=== PATIENT | female | born 1945 | race Caucasian/White ===

== ENCOUNTER → 2018-12-16 13:17 | Outpatient (CLI) | payer MEDICARE, BC, SELFPAY ==
[2018-12-16 14:41] LABS: Add Manual Diff / Slide Review NO; Basophils Absolute Auto 0 /uL (0-100); Basophils Percent Auto 0.4 % (0-2); Eosinophils Absolute Auto 100 /uL (0-450); Eosinophils Percent Auto 1.7 % (2-4); Hematocrit 42.2 % (36-46); Hemoglobin 13.8 g/dL (12.0-16.0); Lymphocytes Absolute Auto 2600 /uL (1100-4500); Lymphocytes Percent Auto 39.4 % (25-40); Mean Corpuscular HGB Conc 32.8 % (30-36); Mean Corpuscular Hemoglobin 29.8 PG (26-34); Monocytes Absolute Auto 600 /uL (0-900); Monocytes Percent Auto 8.9 % (3-14); Neutrophils Absolute Auto 3300 /uL (1500-7000); Neutrophils Percent Auto 49.6 % (50-75); Platelet Count 233 X10^3/uL (150-400); Red Blood Cell Count 4.64 X10^6/uL (4.0-5.2); Red Cell Distribution Width 12.9 % (11.6-14.8); White Blood Cell Count 6.7 X10^3/uL (4.5-11.0)
[2018-12-16 14:45] LABS: Hemoglobin A1C% w Est Avg Glu 6.4 % (4.0-6.0)
[2018-12-16 16:02] LABS: BUN Creatinine Ratio 25.7 (6-22); Blood Urea Nitrogen 18 mg/dL (7-17); Calcium 9.6 mg/dL (8.4-10.2); Carbon Dioxide 31 mmol/L (22-32); Chloride 102 mmol/L (98-107); Estimated Glomerular Filt Rate > 60.0 mL/min (>60); Glucose 114 mg/dL (80-110); HEMOLYSIS < 15 (0-50); Potassium 4.4 mmol/L (3.4-5.1); Sodium 141 mmol/L (137-145)
== END ==
PROVIDERS: Family Provider Physician Assistant; PCP Physician Assistant; Visit Provider Orthopaedic Surgery Orthopaedic Surgery of the Spine
DX: R73.9 Hyperglycemia, unspecified (principal); Z01.818 Encounter for other preprocedural examination
CPT/HCPCS: 36415; 80048; 83036; 85025; 93005; 93010

== ENCOUNTER 2019-01-01 11:06 | Inpatient (IN) | payer MEDICARE, BC, SELFPAY ==
[2018-12-24 13:31] VITALS: BMI 26.1
[2019-01-01] VITALS (22 sets, daily range): BP systolic 87–176; BP diastolic 47–114; PULSE 74–100; RESP 6–18; TEMP 36.2–37.3; O2SAT 72–98; BMI 26.1
--- NOTE | 2019-01-01 | DI.RAD.S_ITS ---
PROCEDURE: XR LUMBAR SPINE 2-3V INDICATIONS: L4-5 TLIF FINDINGS: 2 limited intraoperative fluoroscopically stored images of the lower lumbar spine were obtained for intraoperative hardware localization purposes. These images are not meant for diagnostic purposes. Intraoperative findings related to an L4-5 discectomy and fusion procedure are present. IMPRESSION: Intraoperative images obtained during the patient's L4-5 discectomy/fusion procedure. Dictated by: Silverio Bynum M.D. on 01/01/2019 at 15:13 Approved by: Silverio Bynum M.D. on 01/01/2019 at 15:15
[2019-01-01] MEDS: LACTATED RINGERS 1,000 ML 42 ML IV (12:06)
--- NOTE | 2019-01-01 12:10 | SUR.PREOP ---
Pt is ready for OR at this time. PIV in place, LR at TKO, consent has been signed by all parties except Dr Finley who will do when he assesses the Pt prior to her being brought back to the OR. Awaiting Dr Finley, Anesthesia and BIOMASS PLANT TECHNICIAN to see Pt. Kristofer is a the bedside, Pt denies pain and is resting comfortably at this time.
--- NOTE | 2019-01-01 13:05 | PM.PREOP ---
Pre-operative Note Interval Note History & Physical reviewed/Exam performed by Physician: Yes Changes to H&P: No
[2019-01-01] MEDS: CEFAZOLIN 2 GM/100 ML FROZ.PIGGY IV ×2 (13:24→20:25)
--- NOTE | 2019-01-01 13:56 | SUR.OPER ---
Prone on spine table, head in foam head support, padded chest and pelvic supports, gel pad at knees, lower legs supported by pillows; nipples, genitalia and toes free of pressure, arms secured on foam padded arm boards at <90 degrees abduction. Tape over blanket at thigh secured to table.
[2019-01-01] MEDS: BUPIVACAINE 0.25% W/ EPI VIAL 30 ML INJ (14:01)
[2019-01-01] MEDS: BUPIVACAINE LIPOSOME 266 MG/20 ML VIAL INJ (15:14)
--- NOTE | 2019-01-01 15:34 | PM.OP.1 ---
Operative Date/Time/Diagnoses Date of procedure: 01/01/19 Time of procedure: 12:34 Pre-op diagnosis: 1. L4-5 spondylolisthesis 2. L4-5 spinal stenosis 3. 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 L4-5 Postero-lateral and posterior interbody fusion 2. L4-5 interbody cage placement. 3. L4-5 decompressive laminectomy with bilateral facetecomies 4. L4-5 Posterior non-segmental instrumentation 5. [place] of bone marrow from iliac crest 6. Utilization of microsurgical technique and operating microscope Same procedure as scheduled: Yes Indications: Patient has been having chronic back pain and worsening lumbar radiculopathy. Patient failed multiple conservative management with worsening pain weakness and numbness in her lower extremity. Patient has been having difficulty performing activity of daily living. After discussing risks benefits of treatment options, patient elected proceed with surgery. Surgeon: Ori Finley Construction Services Technician: Vika Hugo Click Yes if Unassisted: No Anesthesia Type: General Operative Notes Closure Type: primary Estimated Blood Loss (mL): 50 Blood products transfused: none Procedure in detail: Patient was seen in the preoperative area. Risks and benefits of the surgery was discussed with the patient. Informed consent was obtained from the patient and placed in the chart. Surgical site was marked. Patient was taken to the operative room. General anesthesia was administered. Prophylactic antibiotic was given to the patient less than 30 min before the incision was made. Patient was placed into a prone position on the González table. Patient's back was then prepped and draped in the sterile fashion. Time-out was performed at this time. Using AP and lateral C-arm imaging the interval between L4-5 was identified and marked on patient's back. A 2 inch incision 2 in from midline was made on the left side first. The fascia was incised in line with skin incision. Globus MARS retractors was placed inside the incision and docked onto the L4 lamina. Using microsurgical technique and operating microscope, a L4-5 laminectomy and L4-5 facetectomy was performed using a Kerrison rongeur. Patient had significant foraminal stenosis which required removal of more than 75% of bilateral facets for decompression. It rendered the L4-5 level grossly unstable after decompression was completed and requiring the fusion procedure at the same time. The disc space at L4-5 was identified. And a total diskectomy was performed at L4-5 level. The endplates were decorticated using a rasp and shaver. The total diskectomy and decortication was performed at L4-5 level in order to to accomplish a L4-5 fusion. The local bone from the laminectomy and facetectomy was saved for local bone grafting. After the total diskectomy and decortication was completed, Bio4 bone graft material was combined with local bone that was harvested earlier. At this time, a separate skin is incision was made over the iliac crest. A Jamshidi needle was inserted into the iliac crest through a separate skin incision. 5 cc of bone marrow aspiration was obtained through the separate skin incision using a Jamshidi needle from the iliac crest. The bone marrow aspiration was combined with local bone and the via cell bone grafting material. The bone grafting material was placed into the L4-5 interbody space along with a expandable cage. The cage was expanded to its maximum height using the torque limiting screwdriver. At this time a mirror image incision was made on the left side. The fascia was incised in line with the skin incision. Globus MARS retractor was inserted and docked onto the L4-5 posterolateral gutter. Using the power drill, posterior-lateral decortication was performed at L4-5 level until bleeding cortical bone was identified. The remaining bone grafting material was placed into the L4-5 posterior lateral gutter he order to accomplish posterolateral fusion at the L4-5 level. Using the double C-arm technique, pedicle screws were placed into the L4-5 pedicles bilaterally. This was done by placing the Jamshidi needle into the pedicles, then placing the guidewires over the Jamshidi needle, and finally placing the cannulated screws over the guidewires bilaterally. After the pedicle screws were placed, 2 titanium rods was locked into the heads of the pedicle screws using locking caps and torque limiting screwdriver. After all the hardware was placed, and confirmed with AP and lateral C-arm imaging, the wound was then irrigated with sterile normal saline and packed with Ray-Brinda gauze for 3 min to accomplish hemostasis. After the gauze was removed the deep fascia was closed with #1 Vicryl suture. The subcutaneous layer was closed with 2-0 Vicryl. The skin was closed with skin arelis. Patient tolerated the procedure well. There were no complications. Complications: none Condition: stable Disposition: PACU Plan for aftercare: Admit to inpatient hospital
[2019-01-01] MEDS: HYDROMORPHONE 2 MG INJ 0.5 MG IV ×8 (16:02→17:06)
[2019-01-01] MEDS: MEPERIDINE 50 MG/ML 25 MG IV (16:11)
[2019-01-01] MEDS: SODIUM CHLORIDE 0.9% 1,000 ML 100 ML IV (17:00)
--- NOTE | 2019-01-01 17:12 | SUR.PHASEI ---
pt arrived in pacu at 1537 pthadan oral airway and her sat dropped to the 60's pt was bagged with 100% o2 for approx one minute and pt woke up and then her O2 sat went up with a simple mask then transferred mask to a nasal cannula. Currently on nasal cannual and doing well. pt now recovered from anesthia and states she feels better. pt is stable. Dr. Gregory stayed with RN unitl pt's o2 sats came up. Pt doing well. now and pain is at a level 5.
[2019-01-01] MEDS: TRAZODONE 50 MG TABLET 150 MG PO (20:25)
[2019-01-01] MEDS: MELATONIN 3 MG TABLET PO (20:26)
[2019-01-01] MEDS: DOCUSATE 100 MG CAPSULE PO (20:26)
[2019-01-01] MEDS: SENNOSIDES 8.6 MG TABLET 17.2 MG PO (20:26)
[2019-01-01] MEDS: OXYCODONE IR 5 MG TABLET 10 MG PO ×2 (20:52→23:08)
[2019-01-02 00:10] VITALS: BP 127/72; PULSE 81; RESP 18; TEMP 36.7; O2SAT 99
[2019-01-02] MEDS: OXYCODONE IR 5 MG TABLET 10 MG PO ×3 (02:12→19:47)
[2019-01-02] MEDS: hydrOXYzine pamoate 25 MG CAPSULE PO ×2 (02:12→07:32)
[2019-01-02] MEDS: MAG HYDROX/ALUM/SIMETH 30 ML UDC PO (02:12)
[2019-01-02 03:51] VITALS: BP 140/69; PULSE 98; RESP 18; TEMP 37; O2SAT 96
[2019-01-02] MEDS: CEFAZOLIN 2 GM/100 ML FROZ.PIGGY IV (04:32)
[2019-01-02 07:11] LABS: Hematocrit 37.2 % (36-46); Hemoglobin 12.1 g/dL (12.0-16.0)
--- NOTE | 2019-01-02 07:28 | PM.PNPO.1 ---
Subjective Date Patient Seen: 01/02/19 Interval history: Patient seen bedside s/p L4-5 TLIF on 01/01/[address] Finley. Patient is POD #1. The patient is doing well, pain is controlled although she is complaining of some nausea. She is also somnolent. She denies numbness tingling states that her leg pain is improved. She denies chest pain shortness of breath. She has walked to the bathroom already this morning. Exam Vital Signs (past 8 hours): - 01/02/19 00:10 01/02/19 03:51 Temperature 98.1 F 98.6 F Pulse Rate 81 98 H Respiratory Rate 18 18 Blood Pressure 127/72 140/69 Pulse Oximetry 99 96 Oxygen Delivery Method Nasal Cannula Oxygen Flow Rate 0 Narrative Exam Narrative: Well-developed well-nourished no acute distress alert and oriented although somnolent. Dressing on the lumbar spine is clean dry and intact mild drainage over the site of the bone graft harvesting. No active drainage. No erythema mild generalized swelling. Calves are soft and compressible. No focal deficits noted. Objective Labs Result Diagrams: 01/02/19 06:30 Labs: Laboratory Results - last 24 hr 01/02/19 06:30 Hgb 12.1 Hct 37.2 Assessment & Plan Post-op Postoperative Procedures Operation Date: 01/01/19 13:15 Actual Procedures Side Surgeon p L4-5 TLIF Ori Finley MD 1. The patient is postop day 1. Status post the above procedure. She is doing well, would potentially like to go home today. This only based on her pain throughout the day as well as her activity with physical therapy. Probable discharge home today or tomorrow. Continue pain control and Zofran as needed for nausea.
[2019-01-02] MEDS: ONDANSETRON 4 MG/2 ML INJ IV (07:32)
[2019-01-02 07:58] VITALS: BP 127/60; PULSE 67; RESP 16; TEMP 36.8; O2SAT 94
--- NOTE | 2019-01-02 09:10 | PT.IIE ---
Current Diagnoses Other spondylosis with radiculopathy, lumbar region (01/01/19) Spinal stenosis, lumbar region without neurogenic claudication (01/01/19) Surgery Performed Operation Date: 01/01/19 13:15 Actual Procedures p L4-5 TLIF - Ori Finley MD Surgical History (Last Updated 12/24/18 @ 14:19 by Faith Maravilla, RN) Hx of tonsillectomy (Acute) Status post blepharoplasty of both eyes (Acute) Status post cataract extraction of both eyes with insertion of intraocular lens (Acute) Medical History (Last Updated 12/29/18 @ 08:18 by Faith Maravilla RN) Depression (Acute) Eczema (Acute) HTN (hypertension) (Acute) Heart murmur (Acute) Numbness and tingling in both hands (Acute) Osteoporosis (Acute) Pre-diabetes (Acute) Tumor (Acute ~2004) Type 2 diabetes mellitus (Acute) Physical Therapy Inpatient Evaluation/Re-Eval M1 PT/OT-IP Prior Functional Status Start: 01/02/19 12:13 Freq: NEEDED Status: Active Protocol: Document 01/02/19 09:10 AB (Rec: 01/02/19 13:04 AB [email or web address]) Medical Review Prior Functional Status Medical History Reviewed Yes Communication able to make needs known but with confusion Mobility and Gait pt stated that she is independent with all mobilities and ambulation without AD Social History Household Members spouse Living Arrangements House Number of Floors (Floors) Two Floors Number of Stairs To Enter/Railing? pt stays on main level of the house has no steps to enter Home Environment Standard Height Toilet Walk in Shower Home Equipment Front Wheel Walker Four Wheel Walker Raised Toilet Seat Without Armrests Hand Held Shower M2 PT-IP Current Condition Start: 01/02/19 12:13 Freq: NEEDED Status: Active Protocol: Document 01/02/19 09:10 AB (Rec: 01/02/19 13:04 AB [email or web address]) Physical Therapy Current Condition Current Condition Evaluation Date 01/02/19 Treatment Diagnosis s/p L4-5 posterolateral/post fusion/ lami; difficulty in walking Onset Date 01/01/19 Precautions Lumbar Precautions Log Roll No Twisting Limit Bending Lifting Restriction of 10 lbs Gait Belt above Incisional Area M3 PT-IP Subjective Start: 01/02/19 12:13 Freq: NEEDED Status: Active Protocol: Document 01/02/19 09:10 AB (Rec: 01/02/19 13:04 AB [email or web address]) Subjective Physical Therapy Visit Type Type Initial Evaluation Visit Start Time 09:10 Visit Stop Time 09:58 Total Visit Minutes 48 Number of [employer] Visits 0 Physical Therapy Visit Comments Patient Comments pt agreeable to do PT Therapy Pain Assessment Pain When Pain Assessed At Rest Pain Present Pain Present Pain Reported Location Back Intensity 5 Scale Used Numeric (1 - 10) Pain Management Techniques Apply Cold Re-positioning Timing of Activity with Medications M4 PT-IP Mobility and Gait Start: 01/02/19 12:13 Freq: NEEDED Status: Active Protocol: Document 01/02/19 09:10 AB (Rec: 01/02/19 13:04 AB [email or web address]) PT-Bed Mobility Assessment Rolling Type of Rolling Log Rolling Level of Assist Moderate Assistance Supine to Sit Supine to Sit Moderate Assistance PT-Transfer Assessment Sit to and From Stand Sit to and from Stand Moderate Assistance 1 Person Assistance Use of Upper Extremities Equipment Transfer Assistive Device Gait Belt Front Wheeled Walker Orthotic/Prosthetic Devices or Brace: No Transfers Transfer Destination Chair Transfer Technique Stand Step Pivot Transfer Ability Level of Assist Minimal Assistance 1 Person Assistance Use of Upper Extremities Comments Mobility Comments pt completed sit to stand mod A and max cues for techniques. pt with difficulty following directions and requires repeated cues and instructions . pt ambulated in room using FWW min A ~ 25 ft. pt was able to stand by the sink with OT assisting and completed grooming/ADLs. pt completed sit <>stand x 3 reps from chair requiring CGa to min A and max cues. Gait Assessment Gait Gait Assistance Required: Minimum Assistance Distance (Feet) 50 Able to Maintain Weight Bearing Status Yes During Gait Assistive Devices Assistive Device Gait Belt 4 Wheeled Walker Orthotic/Prosthetic Devices or Brace: No Gait Deviations General Gait Pattern Antalgic Decreased Stride Length Decreased Feet Clearance Factors Limiting Gait Function Factors Limiting Gait Function Decreased Activity Tolerance Decreased Strength Difficulty Following Directions Limited Range of Motion Pain Poor Balance Poor Safety Awareness Comments Gait Comments pt ambulated in hallway ~ 50 ft using 4WW min A and cues. educated on how to use brakes/ unlocking/locking. 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 Gross Range of Motion Lower Extremity ROM Assessment Within Functional Limits Strength Lower Extremity Strength Assessment Within Functional Limits Muscle Tone Muscle Tone WNL Yes M6 PT-IP Treatment Start: 01/02/19 12:13 Freq: NEEDED Status: Active Protocol: Document 01/02/19 09:10 AB (Rec: 01/02/19 13:04 AB [email or web address]) Physical Therapy Treatment Education Education Provided Precautions Weight Bearing Status Post-Op Packet Safety M7 PT-IP Assessment and Plan Start: 01/02/19 12:13 Freq: NEEDED Status: Active Protocol: Document 01/02/19 09:10 AB (Rec: 01/02/19 13:04 AB [email or web address]) PT Summary Assessment and Plan Potential Rehabilitation Potential Fair Status of Condition at Evaluation Evolving Summary Impairments Pain ROM Strength Balance Coordination Sensation Tone Cognition Bed Mobility Transfers Gait Activity Tolerance Assessment Summary pt requiring min to mod A with mobility and with difficulty processing instructions. pt plans to go home with spouse to assist her. caregiver training will be conducted when appropriate. will continue to assess progress for safe d/c. Goals Bed Mobility Goal Standby Assistance Transfer Goal Standby Assistance Front Wheeled Walker Gait Goal Standby Assistance Front Wheel Walker Gait Distance 150 Days to Meet Goals 3 Frequency of Treatment Frequency Of Treatment Twice a Day Treatment Plan Physical Therapy Treatment Plan Bed Mobility Training Transfer Training Gait Training Therapeutic Exercise Balance Retraining Post Op Education Discharge Planning Hot or Cold Pack Neuromuscular Re-ed Coordination Retraining Manual Therapy Other Recommendations and Next Treatment caregiver training, ambulation Focus Recommendations To Nursing Amount of Assist Needed 1 Person Assist Discharge Recommendations PT Discharge Recommendations Home with Assistance
[2019-01-02] MEDS: ACETAMINOPHEN 325 MG TABLET 650 MG PO ×2 (12:26→18:37)
[2019-01-02] MEDS: DULOXETINE 30 MG CAPSULE 60 MG PO (12:26)
[2019-01-02] MEDS: DOCUSATE 100 MG CAPSULE PO ×2 (12:26→20:37)
[2019-01-02] MEDS: LOSARTAN 25 MG TABLET PO (12:27)
--- NOTE | 2019-01-02 12:39 | PC.NURSE ---
AM NOTE - pt reported nausea during shift report, given 4mg iv zofran and 25mg po vistaril, +bt, no flatus yet, pt did become drowsy after admin but nausea did resolve and ate some oatmeal later and valeria soup for lunch, did get up with phys therapy, hx carpal tunnel wrists, denies numbness or tingling hands or feet, some gen weakness and moving slowly, to chair for short period then ret to bed, discussed pain mgt at lunch and started with 650mg tylenol for back discomfort 5-6 on scale 0/10 and will discuss narcotic later prior to phys therapy.
[2019-01-02 13:00] VITALS: BP 124/61; PULSE 87; RESP 18; TEMP 36.9; O2SAT 93
--- NOTE | 2019-01-02 14:56 | PT.IPTN ---
Current Diagnoses Other spondylosis with radiculopathy, lumbar region (01/01/19) Spinal stenosis, lumbar region without neurogenic claudication (01/01/19) Surgery Performed Operation Date: 01/01/19 13:15 Actual Procedures p L4-5 TLIF - Ori Finley MD Physical Therapy Treatment Note M2 PT-IP Current Condition Start: 01/02/19 12:13 Freq: NEEDED Status: Active Protocol: Document 01/02/19 09:10 AB (Rec: 01/02/19 13:04 AB [email or web address]) Physical Therapy Current Condition Current Condition Evaluation Date 01/02/19 Treatment Diagnosis s/p L4-5 posterolateral/post fusion/ lami; difficulty in walking Onset Date 01/01/19 Precautions Lumbar Precautions Log Roll No Twisting Limit Bending Lifting Restriction of 10 lbs Gait Belt above Incisional Area M3 PT-IP Subjective Start: 01/02/19 12:13 Freq: NEEDED Status: Active Protocol: Document 01/02/19 14:56 AB (Rec: 01/02/19 16:25 AB [email or web address]) Subjective Physical Therapy Visit Type Type Treatment Note Visit Start Time 14:56 Visit Stop Time 15:35 Total Visit Minutes 39 Number of BRAZER RESISTANCE Visits 0 Physical Therapy Visit Comments Patient Comments pt agreed to do PT Therapy Pain Assessment Pain When Pain Assessed At Rest Pain Present Pain Present Pain Reported Location Back Intensity 6 Scale Used Numeric (1 - 10) Pain Management Techniques Re-positioning Timing of Activity with Medications M4 PT-IP Mobility and Gait Start: 01/02/19 12:13 Freq: NEEDED Status: Active Protocol: Document 01/02/19 14:56 AB (Rec: 01/02/19 16:25 AB [email or web address]) PT-Bed Mobility Assessment Rolling Type of Rolling Log Rolling Level of Assist Contact Guard Assistance Supine to Sit Supine to Sit Moderate Assistance Sit to Supine Sit to Supine Minimal Assistance Scooting Scooting to Edge of Bed Minimal Assistance PT-Transfer Assessment Sit to and From Stand Sit to and from Stand Moderate Assistance 1 Person Assistance Equipment Transfer Assistive Device Gait Belt Front Wheeled Walker Orthotic/Prosthetic Devices or Brace: No Transfers Transfer Destination Toilet Transfer Technique pt ambulated to the toilet using FWW min A Transfer Ability Level of Assist Minimal Assistance Comments Mobility Comments caregiver training conducted. Bed mobility training: supine< >sit x 5 reps. educated spouse on how to instruct and assist pt. spouse was able to assist pt but requires cues on how to provide pt instructions and assist. sit<>stand transfer training: educated spouse on how to use safety belt, instruct pt and how to assist pt. spouse was able to assist pt. pt tends to be impulsive and cued to slow down. also educated on how to use FWW properly as pt tends to lift it forward and also tilt it on one side. ambulation training conducted. educated spouse on how to assist pt. pt ambulated to the toilet using FWW with spouse assisting. pt was able to maintain standing using FWW for support CGA while doing brief management. pt was able to ambulate towards the sink using FWW with spouse assisting and completed handwashing. Gait Assessment Gait Gait Assistance Required: Minimum Assistance Distance (Feet) 25 Able to Maintain Weight Bearing Status Yes During Gait Assistive Devices Assistive Device Gait Belt Front Wheeled Walker Orthotic/Prosthetic Devices or Brace: No Gait Deviations General Gait Pattern Antalgic Decreased Stride Length Decreased Feet Clearance Factors Limiting Gait Function Factors Limiting Gait Function Decreased Activity Tolerance Decreased Strength Difficulty Following Directions Limited Range of Motion Pain Poor Balance Poor Safety Awareness M5 PT-IP Objective Assessments Start: 01/02/19 12:13 Freq: NEEDED Status: Active Protocol: Document 01/02/19 09:10 AB (Rec: 01/02/19 13:04 AB [email or web address]) Orientation Orientation/Cognition Level of Alertness Alert Orientation Name Age Place Situation Safety Awareness Decreased Safety Awareness Memory Description 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 pls refer to the mobility section for details. M7 PT-IP Assessment and Plan Start: 01/02/19 12:13 Freq: NEEDED Status: Active Protocol: Document 01/02/19 14:56 AB (Rec: 01/02/19 16:25 AB [email or web address]) PT Summary Assessment and Plan Potential Rehabilitation Potential Good Summary Impairments Pain ROM Strength Balance Coordination Sensation Tone Cognition Bed Mobility Transfers Gait Activity Tolerance Progress Towards Goals Slow Progress - Other Assessment Summary caregiver training conducted and requires further training. pt plans to go home with spouse to assist. d/c plan depending if caregiver will be able to safely assist pt. caregiver training set up for tomorrow ~ 930-1000 am. Goals Bed Mobility Goal Standby Assistance Transfer Goal Standby Assistance Front Wheeled Walker Gait Goal Standby Assistance Front Wheel Walker Gait Distance 150 Days to Meet Goals 3 Frequency of Treatment Frequency Of Treatment Twice a Day Treatment Plan Physical Therapy Treatment Plan Bed Mobility Training Transfer Training Gait Training Therapeutic Exercise Balance Retraining Post Op Education Discharge Planning Hot or Cold Pack Neuromuscular Re-ed Coordination Retraining Manual Therapy Other Recommendations and Next Treatment caregiver training, ambulation Focus Recommendations To Nursing Amount of Assist Needed 1 Person Assist Discharge Recommendations PT Discharge Recommendations Home with Assistance
[2019-01-02 15:30] VITALS: BP 120/51; PULSE 80; RESP 17; TEMP 37.1; O2SAT 93
--- NOTE | 2019-01-02 15:31 | CM.IDA ---
Addendum entered by TONNY Barton 01/03/19 15:07: DC Saturday, not Saturday, still no barriers to safe DC home. Original Note: DC Order in place today; Pt is POD#1 from spinal surgery w/ Dr Finley. Therapy team recommending DC back home w/spouse to support. No barriers indicated to safe DC home, no SW needs. JW
--- NOTE | 2019-01-02 16:30 | OT.IP.EVAL ---
Current Diagnoses Other spondylosis with radiculopathy, lumbar region (01/01/19) Spinal stenosis, lumbar region without neurogenic claudication (01/01/19) Surgery Performed Operation Date: 01/01/19 13:15 Actual Procedures p L4-5 TLIF - Ori Finley MD Past Medical History (Last Updated 12/29/18 @ 08:18 by Faith Maravilla, RN) Depression (Acute) Eczema (Acute) HTN (hypertension) (Acute) Heart murmur (Acute) Numbness and tingling in both hands (Acute) Osteoporosis (Acute) Pre-diabetes (Acute) Tumor (Acute ~2005) Type 2 diabetes mellitus (Acute) Surgical History (Last Updated 12/24/18 @ 14:19 by Faith Maravilla, CHAZ) Hx of tonsillectomy (Acute) Status post blepharoplasty of both eyes (Acute) Status post cataract extraction of both eyes with insertion of intraocular lens (Acute) Occupational Therapy Inpatient Evaluation/Re-Eval M1 PT/OT-IP Prior Functional Status Start: 01/02/19 12:13 Freq: NEEDED Status: Active Protocol: Document 01/02/19 09:10 AB (Rec: 01/02/19 13:04 AB [id number]) Medical Review Prior Functional Status Medical History Reviewed Yes Communication able to make needs known but with confusion Mobility and Gait pt stated that she is independent with all mobilities and ambulation without AD Social History Household Members spouse Living Arrangements House Number of Floors (Floors) Two Floors Number of Stairs To Enter/Railing? pt stays on main level of the house has no steps to enter Home Environment Standard Height Toilet Walk in Shower Home Equipment Front Wheel Walker Four Wheel Walker Raised Toilet Seat Without Armrests Hand Held Shower M1 PT/OT-IP Prior Functional Status Start: 01/02/19 16:11 Freq: NEEDED Status: Active Protocol: Document 01/02/19 16:13 [facility] (Rec: 01/02/19 16:29 [facility] [id number]) Medical Review Prior Functional Status Medical History Reviewed Yes Communication able to make needs known but with confusion Mobility and Gait pt stated that she is independent with all mobilities and ambulation without AD Activities of Daily Living and IADL's Pt states prior completly independent with all needs. Social History Household Members spouse Living Arrangements House Number of Floors (Floors) Two Floors Number of Stairs To Enter/Railing? pt stays on main level of the house has no steps to enter Home Environment Standard Height Toilet Walk in Shower Home Equipment Front Wheel Walker Four Wheel Walker Raised Toilet Seat Without Armrests Hand Held Shower M2 OT-IP Current Condition Start: 01/02/19 16:11 Freq: Status: Active Protocol: Document 01/02/19 16:13 [facility] (Rec: 01/02/19 16:29 [facility] [id number]) Occupational Therapy Current Condition Current Condition Evaluation Date 01/02/19 Treatment Diagnosis Lumbar stenosis Diagnosis Onset Date 01/01/19 Post Operative Precautions Lumbar Precautions Log Roll No Twisting Limit Bending Lifting Restriction of 10 lbs Gait Belt above Incisional Area Weight Bearing Status Weight Bearing Status Weight Bear as Tolerated M3 OT- IP Subjective and Pain Start: 01/02/19 16:11 Freq: Status: Active Protocol: Document 01/02/19 16:13 [facility] (Rec: 01/02/19 16:29 [facility] [id number]) OT- Subjective Occupational Therapy Visit Type Type Initial Evaluation Visit Start Time 09:07 Visit Stop Time 10:07 Total Visit Minutes 60 Occupational Therapy Visit Comments Patient Comments Pt agreeable to get up. OT Pain Assessment Pain When Pain Assessed At Rest Pain Present Pain Present Pain Reported Location Back Intensity 5 Scale Used Numeric (1 - 10) M4 OT- IP ADL's Start: 01/02/19 16:11 Freq: Status: Active Protocol: Document 01/02/19 16:13 [facility] (Rec: 01/02/19 16:29 [facility] [id number]) OT ADL-Grooming General Evaluation Grooming Ability Contact Guard Assistance Areas Needing Assistance Retrieving/Set-up of Grooming Items Comments OT Grooming Comments Pt able to stand at sink with FWW to be able to do grooming needs, cues to incorporate back precautions to spit into a cup or bend at hips versus back. OT ADL-Oral Care General Eval Oral Care Ability Independent OT ADL-Dressing General Eval Lower Body Dressing Ability Maximum Assistance Comments OT Dressing Comments Pt needing assist to marian socks, able to show pt freelance translator and sock aid to be able to increase pt's independence for LB dressing needs. OT ADL-Toileting Comments OT Toileting Comments Pt has RTS at home. M5 OT- IP IADL's Start: 01/02/19 16:11 Freq: Status: Active Protocol: Document 01/02/19 16:13 [facility] (Rec: 01/02/19 16:29 [facility] [id number]) OT-Instrumental Activities of Daily Living Meal Preparation Meal Preparation Comments Family to provide assist. Lamination Builder Lamination Builder Comments Family to provide assist. M6 OT- IP Functional Cognition Start: 01/02/19 16:11 Freq: Status: Active Protocol: Document 01/02/19 16:13 [facility] (Rec: 01/02/19 16:29 [facility] [id number]) Cognitive Factors Limiting Selfcare Function Cognitive Ability Level of Alertness Alert Confusional State Patient Orientation Name Place Situation Attention Span Ability Capable of Focused Attention Capable of Sustained Attention Ability to Follow Commands Able to Follow One Step Commands Memory Description Immediate Intact Short Term Impaired Safety Awareness Decreased Ability to Apply Precautions Underestimates Need for Assistance Problem Solving Ability Needs Assist to Identify Solutions Cognitive Comments Cognitive Assessment Comments Pt needing MAX vc for sit ot stand techniques, vc for sequencing from sit to stand and needing still at the manas of the session with PT/OT not remembering all the cues. Pt only able to recall 2/3 back precautions. M7 OT- IP Mobility and Balance Start: 01/02/19 16:11 Freq: Status: Active Protocol: Document 01/02/19 16:13 [facility] (Rec: 01/02/19 16:29 [facility] [id number]) OT- Bed Mobility Assessment Rolling Type of Rolling Log Rolling Level of Assistance Moderate Assistance Supine to Sit Supine to Sit Assist Moderate Assistance 1 Person Assistance OT-Transfer Assessment Sit to and From Stand Sit to and from Stand Minimal Assistance Moderate Assistance 1 Person Assistance Transfers Transfer Ability Minimal Assistance 1 Person Assistance Technique Transfer Destination Bed Chair Transfer Technique Stand Step Pivot Devices Transfer Assistive Devices Gait Belt Front Wheeled Walker Comments Mobility Comments Pt needing from BALJIT to MODA to stand and MAX vc for safety . Pt attempted use of 4WW however at this time FWW would be safer as 4WW tending to roll too fast for pt at this time. Recommended pt to have FWW when she goes home. OT- Balance Assessment Sitting Balance and Reactions Static Sitting Balance Ability Normal Dynamic Sitting Balance Ability Good Standing Balance and Reactions Static Standing Balance Ability Fair M8 OT- IP Objective Assessments Start: 01/02/19 16:11 Freq: Status: Active Protocol: Document 01/02/19 16:13 [facility] (Rec: 01/02/19 16:29 [facility] [id number]) OT Gross Range of Motion Upper Extremity Range of Motion Assessment Within Functional Limits OT Strength Upper Extremity Strength Assessment Within Functional Limits M9 OT- IP Assessment and Plan Start: 01/02/19 16:11 Freq: Status: Active Protocol: Document 01/02/19 16:13 [facility] (Rec: 01/02/19 16:29 [facility] [id number]) OT Summary Assessment and Plan Potential Rehabilitation Potential Good Analytic Complexity at Evaluation Low Summary OT Impairments Pain Balance Functional Cognition Functional Mobility Dressing Toileting Bathing Toilet Transfers Shower Transfers Progress Towards Goals Slow Progress due to Pain Slow Progress due to Cognition Assessment Summary Pt low complexity and main barrier is a bit groggy and not able to recall back precautions and safety techniques for sit to stand. Pt's to be here for family training prior to pt going home. Pt when medically stable to go home with . Goals Grooming Goal Independent Dressing Goal Standby Assistance Toileting Goal Standby Assistance Bathing Goal Minimal Assistance Toilet Transfer Goal Standby Assistance Shower Transfer Goal Contact Guard Assistance Patient/Caregiver Education Goal Demonstrate Post-Op Precautions Caregiver Independent Assisting Patient Days to Meet Goals 2 Frequency of Treatment Frequency Of Treatment Once a Day Treatment Plan OT Treatment Plan ADL Training Functional Cognition Training Functional Mobility Patient/Family Education Discharge Planning Other Treatment Recommendations and Next Shower and practice and AED Treatment Focus for LB dressing. Discharge Recommendations OT Discharge Recommendations Home with Assistance Home Equipment Needs Shower chair.
[2019-01-02 19:35] VITALS: BP 138/58; PULSE 82; RESP 17; TEMP 37.1; O2SAT 92
[2019-01-02] MEDS: SENNOSIDES 8.6 MG TABLET 17.2 MG PO (20:36)
[2019-01-02] MEDS: TRAZODONE 50 MG TABLET 150 MG PO (20:36)
[2019-01-02] MEDS: MELATONIN 3 MG TABLET PO (20:37)
[2019-01-03 00:33] VITALS: BP 96/44; PULSE 62; RESP 18; TEMP 36.8; O2SAT 93
[2019-01-03 03:40] VITALS: BP 138/75; PULSE 75; RESP 18; TEMP 36.8; O2SAT 96
[2019-01-03] MEDS: ACETAMINOPHEN 325 MG TABLET 650 MG PO (07:00)
--- NOTE | 2019-01-03 07:18 | PM.DS.1 ---
History of Present Illness Date Patient Seen: 01/03/19 Chief complaint: lumbar [id number] Narrative: Patient was seen bedside status post L4-[address] Finley on 01/01/19. Patient is POD #2. She had difficulty with lethargy yesterday and did not move with therapy as expected so was not discharged. Today she is doing better she has been transitioned only on Tylenol for pain and has been up and around ambulating on her own. She states that her pain is controlled at this time. Denies chest pain shortness of breath calf pain. Discharge Providers Date of admission: 01/01/19 11:06 Primary care physician: Dimple Lin PA-C Consults: 01/01/19 17:31 Consult to Occupational Therapy Evaluate & Treat Comment: Physician Instructions: Evaluate and treat Consult to Physical Therapy Evaluate & Treat Comment: Physician Instructions: Evaluate and Treat Discharge provider: Roya See PA-C Discharge Date: 01/03/19 Summary Discharge Diagnosis: 1. L4-5 spondylolisthesis 2. L4-5 spinal stenosis 3. L4-5 spondylosis with radiculopathy Hospital Course: Patient was admitted to the hospital status post L4-5 TLIF on 01/01/[address] Finley. Patient tolerated the procedure well and no major complications. Patient was transitioned to the acute care floor where she was placed on a standard lumbar fusion pathway protocol. She was seen by Physical therapy who recommended discharge home. The patient was stable and ready for discharge on 01/03/2019 Status at Discharge Cognitive/behavioral status at discharge: Alert and oriented x3 Functional status at discharge: uses cane/walker Overall status at discharge: patient is progressing back to baseline Time Spent with Patient Less than 30 minutes Exam Vital Signs (past 8 hours): - 01/03/19 00:33 01/03/19 03:40 Temperature 98.3 F 98.3 F Pulse Rate 62 75 Respiratory Rate 18 18 Blood Pressure 96/44 L 138/75 Pulse Oximetry 93 96 Oxygen Delivery Method Room Air Oxygen Flow Rate 0 Narrative Exam Narrative: Well-developed well-nourished no acute distress alert oriented x3. Dressing on the lumbar spine is clean dry and intact with some mild hole drainage over the site of the bone graft harvest. She has full range of motion of her bilateral lower extremities with soft compressible cast. She is neurovascularly intact bilateral lower extremities with no focal deficits noted. Objective Labs Result Diagrams: 01/02/19 06:30 Labs: Laboratory Results - last 24 hr 01/02/19 06:30 Hgb 12.1 Hct 37.2 Discharge Plan Discharge Plan Patient Disposition: Home Discharge Med Rec/Prescriptions Prescriptions: New docusate sodium 100 mg Capsule 100 mg PO BID Qty: 0 RF: 0 hydroxyzine pamoate 25 mg Capsule 25 mg PO Q4HR PRN (Reason: Nausea And Vomiting) Qty: 40 RF: 0 oxycodone 5 mg tablet 5 mg PO Q4-6H PRN (Reason: pain) Qty: 40 RF: 0 Continue alendronate 70 mg Tablet 70 mg PO QWEEK RF: 0 tramadol 50 mg Tablet 50 mg PO DAILY PRN (Reason: pain) RF: 0 acetaminophen [Tylenol Arthritis Pain] 650 mg Tablet Extended Release 650 mg PO Q8H PRN (Reason: pain) RF: 0 trazodone 150 mg Tablet 150 mg PO BEDTIME RF: 0 losartan 25 mg Tablet 25 mg PO DAILY RF: 0 lysine 500 mg Tablet 500 mg PO DAILY RF: 0 duloxetine 60 mg Capsule,Delayed Release(Dr/Ec) 60 mg PO DAILY RF: 0 melatonin 3 mg Tablet,Disintegrating 1 tab PO BEDTIME RF: 0 Follow up/Referrals: Ori Finley MD [Physician] - (In two weeks at your previously scheduled post-operative appointment.) Provider Discharge Instructions Diet: Diet as Tolerated Activity: Weightbearing as tolerated. Use walker until balance is improved. No bending, lifting greater than 5 lbs, no twisting. Cold/Heat Therapy: May apply ice to operative site 20 minutes at a time as needed for pain/swelling. Skin/Wound/Dressing Care Report to your healthcare provider any signs of infection, such as:: chills, fever, night sweats, increased pain, unusual drainage and unusual redness Dressing: Keep dressing clean, dry, and intact. May shower with dressing intact. Visit Report/Discharge Packet Instructions: Oxycodone, Hydroxyzine, DI for Transforaminal Lumbar Interbody Fusion Visit Report Forms: Stroke Signs & Symptoms Discharge Data Primary Care Provider: Dimple Lin Attending Provider: Ori Finley Admit Date/Time: 01/01/19 11:06
[2019-01-03 08:00] VITALS: BP 120/58; PULSE 66; RESP 16; TEMP 36.6; O2SAT 92
[2019-01-03] MEDS: DOCUSATE 100 MG CAPSULE PO (08:42)
[2019-01-03] MEDS: DULOXETINE 30 MG CAPSULE 60 MG PO (08:42)
[2019-01-03] MEDS: LOSARTAN 25 MG TABLET PO (08:42)
--- NOTE | 2019-01-03 09:25 | PT.IPTN ---
Current Diagnoses Other spondylosis with radiculopathy, lumbar region (01/01/19) Spinal stenosis, lumbar region without neurogenic claudication (01/01/19) Surgery Performed Operation Date: 01/01/19 13:15 Actual Procedures p L4-5 TLIF - Ori Finley MD Physical Therapy Treatment Note M2 PT-IP Current Condition Start: 01/02/19 12:13 Freq: NEEDED Status: Active Protocol: Document 01/02/19 09:10 AB (Rec: 01/02/19 13:04 AB [id number]) Physical Therapy Current Condition Current Condition Evaluation Date 01/02/19 Treatment Diagnosis s/p L4-5 posterolateral/post fusion/ lami; difficulty in walking Onset Date 01/01/19 Precautions Lumbar Precautions Log Roll No Twisting Limit Bending Lifting Restriction of 10 lbs Gait Belt above Incisional Area M3 PT-IP Subjective Start: 01/02/19 12:13 Freq: NEEDED Status: Active Protocol: Document 01/03/19 09:25 AB (Rec: 01/03/19 12:15 AB [id number]) Subjective Physical Therapy Visit Type Type Treatment Note Visit Start Time 09:25 Visit Stop Time 09:46 Total Visit Minutes 21 Number of ACCELERATOR SYSTEMS DIRECTOR Visits 0 Physical Therapy Visit Comments Patient Comments pt agreeable to do PT Therapy Pain Assessment Pain When Pain Assessed At Rest Pain Present Pain Present Pain Reported Location Back Scale Used pain scale not stated Pain Management Techniques Apply Cold Timing of Activity with Medications M4 PT-IP Mobility and Gait Start: 01/02/19 12:13 Freq: NEEDED Status: Active Protocol: Document 01/03/19 09:25 AB (Rec: 01/03/19 12:15 AB [id number]) PT-Bed Mobility Assessment Rolling Type of Rolling Log Rolling Level of Assist Standby Assistance Supine to Sit Supine to Sit Minimal Assistance Moderate Assistance 1 Person Assistance Sit to Supine Sit to Supine Minimal Assistance PT-Transfer Assessment Sit to and From Stand Sit to and from Stand Minimal Assistance Equipment Transfer Assistive Device Gait Belt Front Wheeled Walker Orthotic/Prosthetic Devices or Brace: No Comments Mobility Comments caregiver training conducted. Bed mobility training: supine <>sit log roll x 5 reps. spouse assisted pt with bed mobility. requires cues for safety and maintaining back precautions. sit <>stand x 5 reps : caregiver training on how to assist pt. caregiver has difficulty remembering and to cue to appropriately but pt able to remember instructions after a few reps of doing task . Gait Assessment Gait Gait Assistance Required: Contact Guard Assist Distance (Feet) 125 Able to Maintain Weight Bearing Status Yes During Gait Assistive Devices Assistive Device Gait Belt Front Wheeled Walker Orthotic/Prosthetic Devices or Brace: No Gait Deviations General Gait Pattern Antalgic Decreased Stride Length Decreased Feet Clearance Step-to Gait Factors Limiting Gait Function Factors Limiting Gait Function Decreased Activity Tolerance Decreased Strength Limited Range of Motion Pain Poor Balance Poor Safety Awareness Comments Gait Comments spouse assist pt with ambulation using FWW M5 PT-IP Objective Assessments Start: 01/02/19 12:13 Freq: NEEDED Status: Active Protocol: Document 01/02/19 09:10 AB (Rec: 01/02/19 13:04 AB [id number]) Orientation Orientation/Cognition Level of Alertness Alert Orientation Name Age Place Situation Safety Awareness Decreased Safety Awareness Memory Description Short Term Impaired Retirement Impaired Comments has confusion Gross Range of Motion Lower Extremity ROM Assessment Within Functional Limits Strength Lower Extremity Strength Assessment Within Functional Limits Muscle Tone Muscle Tone WNL Yes M6 PT-IP Treatment Start: 01/02/19 12:13 Freq: NEEDED Status: Active Protocol: Document 01/03/19 09:25 AB (Rec: 01/03/19 12:15 AB [id number]) Physical Therapy Treatment Education Education Provided Precautions Safety M7 PT-IP Assessment and Plan Start: 01/02/19 12:13 Freq: NEEDED Status: Active Protocol: Document 01/03/19 09:25 AB (Rec: 01/03/19 12:15 AB [id number]) PT Summary Assessment and Plan Potential Rehabilitation Potential Fair Summary Impairments Pain ROM Strength Balance Coordination Sensation Tone Cognition Bed Mobility Transfers Gait Activity Tolerance Progress Towards Goals Progressing Toward Goals Assessment Summary caregiver training conducted and spouse was able to assist pt but with occasionally cues given to instruct pt appropriately. pt may go home with assist when medically stable. Goals Bed Mobility Goal Standby Assistance Transfer Goal Standby Assistance Front Wheeled Walker Gait Goal Standby Assistance Front Wheel Walker Gait Distance 150 Days to Meet Goals 3 Frequency of Treatment Frequency Of Treatment Twice a Day Treatment Plan Physical Therapy Treatment Plan Bed Mobility Training Transfer Training Gait Training Therapeutic Exercise Balance Retraining Post Op Education Discharge Planning Hot or Cold Pack Neuromuscular Re-ed Coordination Retraining Manual Therapy Other Recommendations and Next Treatment caregiver training, ambulation Focus Recommendations To Nursing Amount of Assist Needed 1 Person Assist Discharge Recommendations PT Discharge Recommendations Home with Assistance
--- NOTE | 2019-01-03 10:48 | OT.IP.TRT ---
Current Diagnoses Other spondylosis with radiculopathy, lumbar region (01/01/19) Spinal stenosis, lumbar region without neurogenic claudication (01/01/19) Surgery Performed Operation Date: 01/01/19 13:15 Actual Procedures p L4-5 TLIF - Ori Finley MD Occupational Therapy Treatment Note M2 OT-IP Current Condition Start: 01/02/19 16:11 Freq: Status: Active Protocol: Document 01/02/19 16:13 [facility] (Rec: 01/02/19 16:29 [facility] [id number]) Occupational Therapy Current Condition Current Condition Evaluation Date 01/02/19 Treatment Diagnosis Lumbar stenosis Diagnosis Onset Date 01/01/19 Post Operative Precautions Lumbar Precautions Log Roll No Twisting Limit Bending Lifting Restriction of 10 lbs Gait Belt above Incisional Area Weight Bearing Status Weight Bearing Status Weight Bear as Tolerated M3 OT- IP Subjective and Pain Start: 01/02/19 16:11 Freq: Status: Active Protocol: Document 01/03/19 10:40 [facility] (Rec: 01/03/19 10:48 [facility] [id number]) OT- Subjective Occupational Therapy Visit Type Type Treatment Note Visit Start Time 09:57 Visit Stop Time 10:24 Total Visit Minutes 27 Occupational Therapy Visit Comments Patient Comments Pt and present for training. Patient/Caregiver Goals To go home today. OT Pain Assessment Pain When Pain Assessed At Rest Pain Present Pain Present Denied Pain M4 OT- IP ADL's Start: 01/02/19 16:11 Freq: Status: Active Protocol: Document 01/03/19 10:40 [facility] (Rec: 01/03/19 10:48 [facility] [id number]) OT ADL-Dressing General Eval Upper Body Dressing Ability Standby Assistance Lower Body Dressing Ability Moderate Assistance Areas Needing Assistance Underpants/Brief Pants/Shorts Socks Shoes Comments OT Dressing Comments Pt's able to assist pt for LB dressing needs. Suggested pt to sit to don clothing over her feet initially. able to show good safety and understanding for back precaution needs. OT ADL-Bathing Bathing Type Bathing Type Shower General Evaluation Bathing Ability Moderate Assistance Areas Needing Assistance Wash/Dry Upper Body Wash/Dry Lower Extremities Comments OT Bathing Comments Pt would benefit from shower chair at home. able to assist pt for showering needs . M5 OT- IP IADL's Start: 01/02/19 16:11 Freq: Status: Active Protocol: Document 01/02/19 16:13 [facility] (Rec: 01/02/19 16:29 [facility] [id number]) OT-Instrumental Activities of Daily Living Meal Preparation Meal Preparation Comments Family to provide assist. Tong Setter Tong Setter Comments Family to provide assist. M6 OT- IP Functional Cognition Start: 01/02/19 16:11 Freq: Status: Active Protocol: Document 01/03/19 10:40 [facility] (Rec: 01/03/19 10:48 [facility] [id number]) Cognitive Factors Limiting Selfcare Function Cognitive Ability Level of Alertness Alert Patient Orientation Name Place Situation Attention Span Ability Capable of Focused Attention Capable of Sustained Attention Ability to Follow Commands Able to Follow Multi-Step Commands Safety Awareness Decreased Ability to Apply Precautions Underestimates Need for Assistance Problem Solving Ability Needs Assist to Identify Solutions Cognitive Comments Cognitive Assessment Comments Emphasized to pt to communicate with her regarding what is needed versus trying to do it on her own and thus increasing change of not adhering to back precautions. Pt continues to need cues to reach back with her arms to sit . M7 OT- IP Mobility and Balance Start: 01/02/19 16:11 Freq: Status: Active Protocol: Document 01/03/19 10:40 [facility] (Rec: 01/03/19 10:48 [facility] [id number]) OT- Bed Mobility Assessment Rolling Type of Rolling Roll to Left Level of Assistance Minimal Assistance Supine to Sit Supine to Sit Assist Minimal Assistance 1 Person Assistance OT-Transfer Assessment Sit to and From Stand Sit to and from Stand Standby Assistance Contact Guard Assistance Transfers Transfer Ability Contact Guard Assistance 1 Person Assistance Technique Transfer Destination Bed Chair Shower Stall Devices Transfer Assistive Devices Gait Belt Front Wheeled Walker Comments Mobility Comments SBA with FWW for even surfaces and CGA;/MIN for uneven terrain and step over the threshold of the shower. Pt's to take gait belt home OT- Balance Assessment Sitting Balance and Reactions Static Sitting Balance Ability Normal Dynamic Sitting Balance Ability Normal Standing Balance and Reactions Static Standing Balance Ability Good M8 OT- IP Objective Assessments Start: 01/02/19 16:11 Freq: Status: Active Protocol: Document 01/02/19 16:13 [facility] (Rec: 01/02/19 16:29 [facility] [id number]) OT Gross Range of Motion Upper Extremity Range of Motion Assessment Within Functional Limits OT Strength Upper Extremity Strength Assessment Within Functional Limits M9 OT- IP Assessment and Plan Start: 01/02/19 16:11 Freq: Status: Active Protocol: Document 01/03/19 10:40 [facility] (Rec: 01/03/19 10:48 [facility] [id number]) OT Summary Assessment and Plan Potential Rehabilitation Potential Good Analytic Complexity at Evaluation Low Summary OT Impairments Functional Cognition Functional Mobility Dressing Bathing Progress Towards Goals Progressing Toward Goals Assessment Summary Pt's able to do well for caregiver training and states good understanding for OT suggestions. Pt looking to go home today. Goals Days to Meet Goals 1 Frequency of Treatment Frequency Of Treatment Once a Day Treatment Plan OT Treatment Plan Patient/Family Education Discharge Planning Discharge Recommendations OT Discharge Recommendations Home with Assistance Home Equipment Needs Shower chair.
--- NOTE | 2019-01-03 11:18 | PC.NURSE ---
Addendum entered by Beba Baird R.N. 01/03/19 11:23: DC - when ready, reviewed dc instructions with pt and family, scripts provided, belongings gathered, including glasses, clothing, slippers, umaña, bag, cell phone and own fww, tsf to w[place] and escorted to spouse's car. Original Note: AM NOTE - valeria diet, no nausea this am, states pain back and legs 7 on scale 0/10, earlier tylenol providing some relief, Roya MORGAN in this am and advised pt may take her own tramadol at home for pain relief, later phys therapy in and then OT, saline lock dc'd, pt showered and bulky dsg removed, parallel stapled incisions intact w/some surrounding bruising, no open areas, steri strips w/old serosang, replaced with coversite, cleared by PT/OT.
== END 2019-01-03 11:30 | disposition home or self-care (01) | DRG 455 ==
PROVIDERS: Admitting Provider Orthopaedic Surgery Orthopaedic Surgery of the Spine; Family Provider Physician Assistant; PCP Physician Assistant; Visit Provider Orthopaedic Surgery Orthopaedic Surgery of the Spine
PROC: 0SG00AJ Fusion of Lumbar Vertebral Joint with Interbody Fusion Device, Posterior Approach, Anterior Column, Open Approach (ICD-10-PCS; principal; 2019-01-01 13:15)
DX: M48.061 Spinal stenosis, lumbar region without neurogenic claudication (principal); M43.16 Spondylolisthesis, lumbar region; M47.26 Other spondylosis with radiculopathy, lumbar region; I10 Essential (primary) hypertension; F32.9 Major depressive disorder, single episode, unspecified; R11.0 Nausea
CPT/HCPCS: 36415; 72100; 76000; 85014; 85018; 97162; 97165; 97530; 97535; C1776; C9290; J0690; J1100; J1170; J2175; J2405; J2704

== ENCOUNTER → 2019-12-10 15:02 | Outpatient (CLI) | payer MEDICARE, BC, SELFPAY ==
[2019-01-01 17:37] VITALS: BMI 26.1
--- NOTE | 2019-12-10 | DI.CT.S_ITS ---
PROCEDURE: CT LUMBAR SPINE WO CON INDICATIONS: Intervertebral disc disorders with radiculopathy, TECHNIQUE: Noncontrast 3 mm thick sections acquired from the T12 level to the sacrum. Sagittal and coronal reformats were constructed. For radiation dose reduction, the following was used: automated exposure control. COMPARISON: None. FINDINGS: Image quality: Excellent. Bones: Postsurgical changes compatible with L4-L5-5 TLIF. Orthopedic hardware is intact. No lucency is identified at the bone-hardware interface. There is normal bony alignment. No acute vertebral body compression fractures. No suspicious lytic or blastic bony lesions. No pars defects. T12-L1: Disc height is normal. Anterior endplate osteophytosis. No central stenosis. No neural foraminal narrowing. No neural compression. L1-L2: Disc height is normal. Anterior endplate osteophytosis. Minimal, diffuse disc bulge. No central stenosis. No neural foraminal narrowing. No neural compression. L2-L3: Disc height is normal. Mild, diffuse disc bulge. No central stenosis. No neural foraminal narrowing. No neural compression. L3-L4: Disc height is normal. Mild, diffuse disc bulge. Mild bilateral facet hypertrophy. No central stenosis. Mild right neural foraminal narrowing. No neural compression. L4-L5: Status post fusion. Mild right facet hypertrophy. No central stenosis. Mild right neural foraminal narrowing. No neural compression. L5-S1: Disc height is normal. Mild, diffuse disc bulge. Mild bilateral facet hypertrophy. No central stenosis. No neural foraminal narrowing. No neural compression. Soft tissues: No retroperitoneal masses or hematomas. Visualized aorta is normal in caliber. Incidental note made of a small hiatal hernia. IMPRESSION: 1. Status post L4-L5 TLIF. 2. Mild multilevel degenerative disc disease. 3. Mild multilevel facet arthropathy. 4. No central stenosis. 5. Mild right L3-L4 and L4-L5 neural foraminal narrowing. 6. No neural compression. Dictated by: Myrna Fuentes MD, PhD on 12/10/2019 at 17:53 Approved by: Myrna Fuentes MD, PhD on 12/10/2019 at 18:01
== END ==
PROVIDERS: PCP Student in an Organized Health Care Education/Training Program; Visit Provider Orthopaedic Surgery Orthopaedic Surgery of the Spine
DX: M51.16 Intervertebral disc disorders with radiculopathy, lumbar region (principal); M51.17 Intervertebral disc disorders with radiculopathy, lumbosacral region; M47.26 Other spondylosis with radiculopathy, lumbar region; M47.27 Other spondylosis with radiculopathy, lumbosacral region; M48.061 Spinal stenosis, lumbar region without neurogenic claudication; K44.9 Diaphragmatic hernia without obstruction or gangrene; Z98.1 Arthrodesis status
CPT/HCPCS: 72131

== ENCOUNTER → 2020-08-19 13:32 | Outpatient (CLI) | payer MEDICARE, BC, SELFPAY ==
[2019-01-01 17:37] VITALS: BMI 26.1
== END ==
PROVIDERS: PCP Student in an Organized Health Care Education/Training Program; Referring Provider Student in an Organized Health Care Education/Training Program; Visit Provider Student in an Organized Health Care Education/Training Program
DX: M85.851 Other specified disorders of bone density and structure, right thigh (principal); Z78.0 Asymptomatic menopausal state; Z82.62 Family history of osteoporosis
CPT/HCPCS: 77080

== ENCOUNTER → 2021-02-17 12:15 | Outpatient (CLI) | payer MEDICARE, BC, SELFPAY ==
[2019-01-01 17:37] VITALS: BMI 26.1
--- NOTE | 2021-02-17 | DI.RAD.S_ITS ---
PROCEDURE: XR WRIST LT MIN 3V INDICATIONS: Pain in left wrist TECHNIQUE: For views of the wrist were acquired. COMPARISON: None. FINDINGS: Bones: No fractures or dislocations. No suspicious bony lesions. 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 Scaphoid view: Scaphoid is intact. Soft tissues: No suspicious soft tissue calcifications. IMPRESSION: 1. No fracture. No acute osseous lesion. If symptoms and/or clinical suspicion for pathology persists, further assessment with repeat radiographs (7-10 days) or advanced imaging (e.g. CT, MRI or bone scan) should be considered. 2. 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 Dictated by: Myrna Fuentes MD, PhD on 02/17/2021 at 16:52 Approved by: Myrna Fuentes MD, PhD on 02/17/2021 at 16:54
== END ==
PROVIDERS: PCP Student in an Organized Health Care Education/Training Program; Referring Provider Student in an Organized Health Care Education/Training Program; Visit Provider Student in an Organized Health Care Education/Training Program
DX: M19.032 Primary osteoarthritis, left wrist (principal); M25.532 Pain in left wrist
CPT/HCPCS: 73110

== ENCOUNTER → 2021-03-03 11:42 | Outpatient (CLI) | payer MEDICARE, BC, SELFPAY ==
[2019-01-01 17:37] VITALS: BMI 26.1
--- NOTE | 2021-03-03 11:51 | DI.RAD.S_ITS ---
PROCEDURE: XR LUMBAR SPINE MIN 4V INDICATIONS: DISC DEGEN TECHNIQUE: Five views of the lumbar spine including oblique views was performed. COMPARISON: [facility], JAKUB, XR LUMBAR SPINE 2-3V, 01/01/2019, 13:52. [facility], CR, L-SPINE 2-3 VIEWS, 11/09/2016, 14:22. FINDINGS: Bones: 5 nonrib-bearing vertebrae are present. The patient is status post pedicular screw and nick fixation with discectomy and interbody fusion at L4-5. There is no hardware fracture or perihardware lucency. T12-L1 and L1-2 have disc disease. There is normal bony alignment. No vertebral body compression fractures. No suspicious bony lesions. The acromioclavicular joints are normal. The symphysis pubis has degenerative changes. Both hips have mild degenerative changes. Soft tissues: Overlying bowel gas pattern is normal. No suspicious soft tissue calcifications. Flexion/extension: There is normal range of motion, with preserved normal alignment. IMPRESSION: 1. Postoperative changes at L4-5 without complication. 2. Degenerative disc disease at T12-L1 and L1-2. 3. No acute abnormality. Dictated by: Bethel Thrasher M.D. on 03/03/2021 at 12:32 Approved by: Bethel Thrasher M.D. on 03/03/2021 at 12:35
== END ==
PROVIDERS: PCP Student in an Organized Health Care Education/Training Program; Referring Provider Student in an Organized Health Care Education/Training Program; Visit Provider Student in an Organized Health Care Education/Training Program
DX: M51.35 Other intervertebral disc degeneration, thoracolumbar region (principal); M51.36 Other intervertebral disc degeneration, lumbar region; M54.18 Radiculopathy, sacral and sacrococcygeal region
CPT/HCPCS: 72110

== ENCOUNTER → 2021-04-02 11:33 | Outpatient (CLI) | payer MEDICARE, BC, SELFPAY ==
[2019-01-01 17:37] VITALS: BMI 26.1
--- NOTE | 2021-04-02 11:35 | DI.MRI.S_ITS ---
PROCEDURE: MR LUMBAR SPINE WO CON INDICATIONS: Left L4-5 transforaminal MEAGHAN TECHNIQUE: Noncontrast sagittal T1 spin echo and T2 fast echo, sagittal STIR, axial T1 and T2 fast spin echo through the lumbar spine. In cases with scoliosis, additional coronal T2 fast spin echo may be performed. COMPARISON: [facility], CT, CT LUMBAR SPINE WO CON, 12/10/2019, 15:07. [facility], CR, XR LUMBAR SPINE MIN 4V, 03/03/2021, 11:52. FINDINGS: Image quality: Excellent. Alignment and Curvature: 5 lumbar type vertebral bodies are present by plain film. Alignment is normal. Bone Marrow: Marrow is of normal overall signal. No acute vertebral body compression fractures. Posterior fusion at L4-L5 is been performed with paired posterior rods and pedicle screws. Spinal Cord: Conus medullaris terminates at the upper L1 level. Visualized cord demonstrates normal signal and size. Paraspinous Soft Tissues: No paravertebral masses. T12-L1: Moderate disc height loss and desiccation. Mild facet and ligamentum flavum hypertrophy. Mild canal stenosis. No significant foraminal stenosis. L1-L2: Moderate disc desiccation. Mild diffuse disc bulge. Mild facet and ligamentum flavum hypertrophy. Mild canal stenosis. No foraminal stenosis. No significant change. L2-L3: Moderate disc desiccation. Mild diffuse disc bulge. Mild facet and ligamentum flavum hypertrophy. Mild epidural lipomatosis. No significant canal, or foraminal stenosis. L3-L4: Mild disc desiccation and diffuse disc bulge. Mild facet and ligamentum flavum hypertrophy. Mild epidural lipomatosis. Mild canal stenosis. Mild bilateral foraminal stenosis. No significant change. L4-L5: Status post fusion. Mild bilateral facet hypertrophy. No significant canal stenosis. Mild bilateral foraminal stenosis. No significant change. L5-S1: Mild bilateral facet hypertrophy. No significant canal stenosis. Mild bilateral foraminal stenosis. No significant change. IMPRESSION: 1. Postsurgical sequelae. 2. Multilevel degenerative disc and facet disease, as well as ligamentum flavum hypertrophy and epidural lipomatosis. 3. Mild multilevel canal and foraminal stenoses. ictated by: Omer Azar M.D. on 04/03/2021 at 9:03 Approved by: Omer Azar M.D. on 04/03/2021 at 9:06
== END ==
PROVIDERS: PCP Student in an Organized Health Care Education/Training Program; Referring Provider Physical Medicine & Rehabilitation; Visit Provider Physical Medicine & Rehabilitation
DX: M51.16 Intervertebral disc disorders with radiculopathy, lumbar region (principal); M48.061 Spinal stenosis, lumbar region without neurogenic claudication; M48.07 Spinal stenosis, lumbosacral region; Z98.1 Arthrodesis status
CPT/HCPCS: 72148

== ENCOUNTER → 2021-04-17 11:09 | Outpatient (CLI) | payer MEDICARE, BC, SELFPAY ==
[2019-01-01 17:37] VITALS: BMI 26.1
[2021-04-17 17:06] LABS: COVID19 -Nasal RAPID Negative (Negative)
== END ==
PROVIDERS: PCP Student in an Organized Health Care Education/Training Program; Visit Provider Physical Medicine & Rehabilitation
DX: Z20.822 Contact with and (suspected) exposure to COVID-19 (principal)
CPT/HCPCS: 87635; C9803

== ENCOUNTER 2021-04-18 07:56 | Outpatient (CLI) | payer MEDICARE, BC, SELFPAY ==
[2019-01-01 17:37] VITALS: BMI 26.1
[2021-04-18] VITALS (8 sets, daily range): BP systolic 119–183; BP diastolic 57–84; PULSE 51–68; RESP 10–19; TEMP 36.8; O2SAT 92–98
--- NOTE | 2021-04-18 08:00 | DI.RAD.S_ITS ---
PROCEDURE: PAIN L/S TRANSFORAMINAL INJECT INDICATIONS: SPONDYLOSIS COMPARISON: [facility], CR, XR LUMBAR SPINE MIN 4V, 03/03/2021, 11:52. FINDINGS: Fluoroscopic spot filming was performed to verify placement of spinal needles at the left L4-L5 level(s), as labeled on the films. Appropriate location(s) of the needle tip(s) was confirmed by injection of iodinated contrast. Discectomy and posterior fusion at L4-L5. IMPRESSION: Fluoroscopy for pain management. Dictated by: Zaida Velasquez M.D. on 04/18/2021 at 9:21 Approved by: Zaida Velasquez M.D. on 04/18/2021 at 9:25
[2021-04-18] MEDS: fentaNYL 100 MCG/2 ML INJ 50 MCG IV (08:55)
[2021-04-18] MEDS: MIDAZOLAM 5 MG/5 ML VIAL IV (08:55)
[2021-04-18] MEDS: DEXAMETHASONE 10 MG/ML VIAL 20 MG INJ (09:00)
[2021-04-18] MEDS: IOPAMIDOL 15 ML VIAL 3 ML INJ (09:01)
[2021-04-18] MEDS: BUPIVACAINE 0.25% (PF) VIAL 2 ML INJ (09:01)
[2021-04-18] MEDS: BETAMETHASONE 30 MG/5 ML MDV 6 MG INJ (09:01)
--- NOTE | 2021-04-18 09:08 | P.PCN_ITS ---
Date/Time/Diagnoses Date of procedure: 04/18/21 Time of procedure: 09:08 Pre-procedure diagnosis: 1. FORAMINAL STENOSIS WITH LE SYMPTOMS Post-procedure diagnosis: same Procedure Notes Procedure: 1. FLUOROSCOPICALLY GUIDED CONTRAST CONTROLLED TRANSFORAMINAL EPIDURAL STEROID INJECTION - LEFT L4/5 Indications: Aylin is referred by MORA Shepherd for treatment of Foraminal Stenosis with Left LE Symptoms Physician: Toni Porter Total Fluoroscopy time (seconds): 11 Total sedation minutes: 10 Complications: none Procedure in detail & Post-procedure care: FINDINGS Foraminal Nerve Root Compression secondary to disc disease and facet hypertrophy DESCRIPTION OF PROCEDURE Following review of allergy and review of potential side effects and complications, including, but not necessarily limited to, infection, allergic reaction, local tissue breakdown, stroke, temporary or permanent nerve injury, paralysis, and possible , the patient indicated that the patient understood and agreed to proceed. An informed consent document was signed by the patient, witnessed by a nurse, and placed in the patient's chart. Additionally, other treatment options including medications, modalities, and physical therapy were reviewed with the patient. After review of previous anaesthesic history and IV conscious sedation the patient was deemed safe to proceed with today?s procedure with IV conscious sedation as ASA class II designation. Safety time-out was performed to confirm patient ID, procedure to be performed and site of procedure. IV sedation was accomplished with a combination of 2mg of Versed and 50mcg of Fentanyl administered by the RN after DO order, titrated to patient comfort during the course of the procedure while the patient remained responsive to all verbal commands In the prone position following sterile prep and drape of the lumbar region, the left L4/5 posterior neuroforamen was identified fluoroscopically. The skin was anesthetized via a 25-gauge 1.5-inch needle with 1% lidocaine solution. At this point, a 25-gauge 3.5-inch spinal needle was atraumatically introduced and advanced under fluoroscopic guidance through the posterior left L4/5 neuroforame n to approximately the anterior aspect of the canal. Depth was confirmed on lateral view. Following negative aspiration, injection of approximately 1.5 cc of Isovue 200 under live fluoroscopy in the AP view confirmed excellent flow along the nerve root, into the epidural space without vascular or intrathecal uptake observed Radiological data, including multiple fluoroscopic views of the lumbosacral spine, reveal a spinal needle at the left L4/5 posterior neuroforamen. Subsequent views show flow of contrast material flowing superiorly and inferiorly along the nerve root confirming epidural flow. Subsequently, a test dose of 1.5 cc of 1% lidocaine solution was administered and patient was observed for two minutes for signs or symptoms of complications, including abdominal pain, shortness of breath, bilateral upper or lower extremity weakness, nausea and vomiting, prior to steroid injection. At this point, a total of 3cc or 20mg of dexamethasone and 6mg of betamethasone was inje cted without incident. The procedure tolerated the procedure well without signs or symptoms of complications prior to transfer to the recovery area continued monitoring without incident. The patient was then transferred to the recovery area where they were observed for an appropriate time after the injection. The patient reported a VAS score of 7 prior to the procedure and a post-procedure VAS of 0. POST OP INSTRUCTIONS The patient was provided a Pain Log to continue to record their response to the target-specific procedure prior to follow-up visit with their referring physician. Additionally, specific post-injection care instructions and a contact number to our office were provided if concerns arise regarding possible complications associated with the procedure are suspected.
== END 2021-04-18 09:55 | disposition home or self-care (01) ==
LOC: RAD 07:59
PROVIDERS: PCP Student in an Organized Health Care Education/Training Program; Referring Provider Physical Medicine & Rehabilitation; Visit Provider Physical Medicine & Rehabilitation
DX: M48.061 Spinal stenosis, lumbar region without neurogenic claudication (principal); M51.16 Intervertebral disc disorders with radiculopathy, lumbar region
CPT/HCPCS: 64483; 99152; J0702; J1100; J2250; J3010

== ENCOUNTER → 2021-08-31 08:10 | Outpatient (CLI) | payer MEDICARE, BC, SELFPAY ==
[2021-07-05 09:55] VITALS: BMI 26.1
== END ==
PROVIDERS: Family Provider Student in an Organized Health Care Education/Training Program; PCP Student in an Organized Health Care Education/Training Program; Referring Provider Physical Medicine & Rehabilitation; Visit Provider Physical Medicine & Rehabilitation
DX: M54.17 Radiculopathy, lumbosacral region (principal); R20.2 Paresthesia of skin; Z98.890 Other specified postprocedural states
CPT/HCPCS: 95886; 95911

== ENCOUNTER → 2022-07-12 14:08 | Outpatient (CLI) | payer MEDICARE, BC, SELFPAY ==
[2021-07-05 09:55] VITALS: BMI 26.1
== END ==
PROVIDERS: Family Provider Student in an Organized Health Care Education/Training Program; PCP Student in an Organized Health Care Education/Training Program; Referring Provider Student in an Organized Health Care Education/Training Program; Visit Provider Student in an Organized Health Care Education/Training Program
DX: Z13.820 Encounter for screening for osteoporosis; Z78.0 Asymptomatic menopausal state; M85.89 Other specified disorders of bone density and structure, multiple sites
CPT/HCPCS: 77080

== ENCOUNTER → 2023-03-07 13:22 | Outpatient (CLI) | payer MEDICARE, BC, SELFPAY ==
[2021-07-05 09:55] VITALS: BMI 26.1
--- NOTE | 2023-03-07 | DI.RAD.S_ITS ---
PROCEDURE: XR CERVICAL SPINE 2V OR 3V INDICATIONS: Other chronic pain TECHNIQUE: 3 view(s) of the cervical spine were acquired. 1 repeat. COMPARISON: None. FINDINGS: Bones: No fractures or dislocations to the C7 level. The lateral masses of C1 appear intact on the odontoid view. No suspicious bony lesions. Moderate disc height loss at C5-6, C6-7. Mild disc height loss at remaining levels. Moderate facet arthrosis, multilevel, most prominent C4-5. Soft tissues: No prevertebral soft tissue swelling. IMPRESSION: Mild to moderate, multilevel degenerative disc disease and facet arthrosis. Dictated by: Jake Toribio M.D. on 03/07/2023 at 14:06 Approved by: Jake Toribio M.D. on 03/07/2023 at 14:07
== END ==
PROVIDERS: Family Provider Student in an Organized Health Care Education/Training Program; PCP Student in an Organized Health Care Education/Training Program; Referring Provider Student in an Organized Health Care Education/Training Program; Visit Provider Student in an Organized Health Care Education/Training Program
DX: M50.322 Other cervical disc degeneration at C5-C6 level (principal); M47.22 Other spondylosis with radiculopathy, cervical region; G89.29 Other chronic pain
CPT/HCPCS: 72040

== ENCOUNTER → 2024-10-13 10:05 | Outpatient (CLI) | payer MEDICARE, BC, SELFPAY ==
[2021-07-05 09:55] VITALS: BMI 26.1
--- NOTE | 2024-10-13 10:07 | DI.RAD.S_ITS ---
PROCEDURE: XR DEXA AXIAL SKELETON INDICATIONS: osteopenia COMPARISON: [facility], CR, XR DEXA AXIAL SKELETON, 07/12/2022, 14:20. [facility], CR, XR DEXA AXIAL SKELETON, 08/19/2020, 13:59. FINDINGS: Lumbar Spine: Bone mineral density 0.873 g/cm2, T score -1.3, no statistically significant change compared to prior. Left Hip: Bone mineral density 0.773 g/cm2, T score -1.4, increased by 3.4%. Left Femoral Neck: Bone mineral density 0.642 g/cm2, T score -1.9. Right Hip: Bone mineral density 0.782 g/cm2, T score -1.3, no statistically significant change compared to prior.. Right Femoral Neck: Bone mineral density 0.689 g/cm2, T score -1.4. Fracture Risk Calculation (when applicable): 10-year fracture risk of a major osteoporotic fracture 14 percent and of a hip fracture 3.6 percent. (T score greater or equal to -1.0 to: NORMAL) (T score from -1.1 to -2.4: OSTEOPENIA) (T score less than or equal to -2.5: OSTEOPOROSIS) IMPRESSION: Low bone mineral density (osteopenia) by WHO classification. Follow-up guidelines as follows: Osteoporosis: Consider a repeat DEXA and Vertebral Fracture Assessment (VFA) exam in 2 years or sooner if medically necessary, to reassess this patient's status. Osteopenia: Consider a repeat DEXA in 2-3 years to reassess this patient's status, or if there is a new clinical indication. Normal: Consider a repeat DEXA in 5 years or sooner, or if there is a new clinical indication. All treatment decisions require clinical judgment and consideration of individual patient factors, including patient preferences, comorbidities, previous drug use, risk factors not captured in the FRAX model (e.g., frailty, falls, vitamin D deficiency, increased bone turnover, interval significant decline in bone density ) and possible under- or over-estimation of fracture risk by FRAX. In addition, the NOF Guide recommends that FDA-approved medical therapies be considered in postmenopausal women and men age >= 50 years with a: * Hip or vertebral (clinical or morphometric) fracture * T-score of <=-2.5 at the spine or hip * Ten-year fracture probability by FRAX of >= 3% for hip fracture or >=20% for major osteoporotic fracture. People with diagnosed cases of osteoporosis or at high risk for fracture should have regular bone mineral density tests. For patients eligible for Medicare, routine testing is allowed once every 2 years. The testing frequency can be increased to one year for patients who have rapidly progressing disease, those who are receiving or discontinuing medical therapy to restore bone mass, or have additional risk factors. Dictated by: Saud Garcia M.D. on 10/13/2024 at 15:07 Approved by: Saud Garcia M.D. on 10/13/2024 at 15:08
== END ==
PROVIDERS: Family Provider Student in an Organized Health Care Education/Training Program; PCP Physician Assistant; Referring Provider Physician Assistant; Visit Provider Physician Assistant
DX: M85.89 Other specified disorders of bone density and structure, multiple sites (principal)
CPT/HCPCS: 77080